=== PATIENT | female | born 1995 | race Caucasian/White ===

== ENCOUNTER 2019-02-07 19:00 | Inpatient (IN) | payer OTHER ==
[2019-02-07 22:38] LABS: BASO % 0.7 % (0-2.0); EOS % 0.8 % (0-4.5); HEMATOCRIT 37.2 % (32.4-45.2); HEMOGLOBIN 12.5 GM/dL (10.7-15.3); LYMPH % 26.9 % (8-40); MCH 28.9 pg (25.7-33.7); MCHC 33.6 g/dl (32.0-36.0); MEAN CELL VOLUME 86.1 fl (80-96); MEAN PLT VOLUME 11.9 fl (7.5-11.1); MONO % 5.8 % (3.8-10.2); NEUT % 65.8 % (42.8-82.8); PLATELET COUNT 205 K/MM3 (134-434); RBC 4.32 M/mm3 (3.60-5.2); RDW 13.1 % (11.6-15.6)
[2019-02-07 22:51] LABS: INR 0.94 (0.83-1.09); PROTHROMBIN TIME (PATIENT) 11.1 SEC (9.7-13.0)
[2019-02-07 22:53] LABS: ACTIVATED PTT 28.4 SECONDS (25.2-36.5)
[2019-02-07 23:09] LABS: CALCIUM 9.1 mg/dL (8.5-10.1); CREATININE 0.6 mg/dL (0.55-1.3); POTASSIUM 3.9 mmol/L (3.5-5.1)
[2019-02-07 23:44] VITALS: BMI 28.9
[2019-02-08] MEDS ORDERED: AMPICILLIN - 2 GM in SODIUM CHLORIDE 100 ML IVPB STA (02:58)
[2019-02-08] MEDS ORDERED: DEXTROSE 5%-LACTATED RINGERS 1,000 ML IV SCH (03:00)
[2019-02-08] MEDS ORDERED: AMPICILLIN SODIUM 2 GM VIAL ONE (03:06)
[2019-02-08] MEDS ORDERED: AMPICILLIN SODIUM 1 GM VIAL ONE ×3 (06:39→23:32)
[2019-02-08] MEDS: AMPICILLIN - 1 GM in SODIUM CHLORIDE 100 ML IVPB SCH ×5 (06:49→23:00)
[2019-02-08 08:45] LABS: POC NITRAZINE POS
[2019-02-08] MEDS: DEXTROSE 5%-LACTATED RINGERS 1,000 ML IV SCH ×2 (09:00→22:00)
[2019-02-08] MEDS ORDERED: DINOPROSTONE 10 MG VAGINAL SUPPOSITORY VG ONE (09:00)
--- NOTE | 2019-02-08 09:29 | HP ---
Past Medical History - Admission Chief Complaint: Leakage of fluid History of Present Illness: 23 yo , @ 39 weeks gestation, EDC 02/11/19, admitted due to spontaneous rupture of membrane. Upon admission there was evidence of gross pooling. History Source: Patient Limitations to Obtaining History: No Limitations - Past Medical History ...: 1 ...Para: 0 ...Term: 0 ...: 0 ...Spon : 0 ...Induced : 0 ...Multiple Gestation: 0 ...LMP: 05/07/18 ... Weeks Gestation by Dates: 39.4 ...EDC by Dates: 02/11/19 - Past Surgical History Past Surgical History: Yes: None Hx Myomectomy: No Hx Transabdominal Cerclage: No - Smoking History Smoking history: Never smoked Aproximately how many cigarettes per day: 0 - Alcohol/Substance Use Hx Alcohol Use: No - Social History History of Recent Travel: No Home Medications - Allergies Allergies/Adverse Reactions: Allergies Allergy/AdvReac Type Severity Reaction Status Date / Time No Known Allergies Allergy Verified 02/08/19 04:26 - Home Medications Home Medications: Ambulatory Orders Vitamins ([facility]) - 1 tab PO DAILY 02/08/19 Family Medical History Family History: Unremarkable Review of Systems - Review of Systems Constitutional: reports: No Symptoms Eyes: reports: No Symptoms HENT: reports: No Symptoms Neck: reports: No Symptoms Cardiovascular: reports: No Symptoms Respiratory: reports: No Symptoms Gastrointestinal: reports: No Symptoms Genitourinary: reports: Other (Leakage of fluid) Breasts: reports: No Symptoms Reported Musculoskeletal: reports: No Symptoms Integumentary: reports: No Symptoms Neurological: reports: No Symptoms Endocrine: reports: No Symptoms Hematology/Lymphatic: reports: No Symptoms Psychiatric: reports: No Symptoms Pain Intensity: 0 Physical Exam - Maternity Vital Signs: Vital Signs Temperature 98.5 F 02/08/19 08:00 Pulse Rate 62 02/08/19 08:00 Respiratory Rate 18 02/08/19 08:00 Blood Pressure 110/66 02/08/19 08:00 O2 Sat by Pulse Oximetry (%) Constitutional: No: No Distress Eyes: Yes: Conjunctiva Clear HENT: Yes: Atraumatic Neck: Yes: Supple Cardiovascular: Yes: Regular Rate and Rhythm Lungs: Clear to auscultation - Abdominal Exam/OB Number of Fetuses: Single Presentation: Vertex Contractions: Yes Regularity: Irregular Intensity: Unaware - Vaginal Exam/OB Amniotic Membrane Status: Ruptured Nitrazine Test: Positive Amniotic Fluid: Yes: Clear Presentation: Vertex/Position Station: -3 - Physical Exam Integumentary: Yes: WNL ...Motor Strength: WNL Psychiatric: Yes: Alert, Oriented - Labs Lab Results: CBC, BMP 02/07/19 22:15 02/07/19 22:15 Problem List - Problems (1) 39 weeks gestation of Problems reviewed: Yes Code(s): Z3A.39 - 39 WEEKS GESTATION OF (2) Spontaneous rupture of amniotic membranes Problems reviewed: Yes Code(s): OKO6915 - Assessment/Plan 39 weeks gestation Spontaneous rupture of membrane Admit for cervidil induction GBS prophylaxis
[2019-02-08] MEDS ORDERED: OXYTOCIN 30 UNITS in 0.9% NS 30 UNIT/500 ML INFUS.BAG IVPB ONE (21:53)
[2019-02-08] MEDS ORDERED: OXYTOCIN 30 UNITS in 0.9% NS 30 UNIT/500 ML INFUS.BAG IVPB SCH ×2 (22:00→22:45)
[2019-02-08] MEDS ORDERED: diphenhydrAMINE HCL 25 MG CAPSULE (FP) PO ONE (22:00)
--- NOTE | 2019-02-08 22:44 | LDN ---
Oxytocin Pre-Use Checklist Date and Time completed: 02/08/19 2306 Physician order on chart: Yes Current history and physical on chart: Yes Indication for induction is documented: Yes record on chart: Yes Pelvis is documented by physician to be clinically adequate: Yes Estimated weight within past week (clinical or sono): Less than 4500 grams in a non-diabetic woman Gestational age is documented: Yes Consent signed: Yes Physician with privileges: is aware of the induction, is documented in the medical record Status of the cervix is assessed and documented: Yes Presentation is assessed and documented: Yes Assessment completed and includes: A minimum of 30 minutes of monitoring is required prior to start, At least 2 accelerations (15bpm x 15sec) in 30 minutes are present, Adequate variability
[2019-02-08] MEDS ORDERED: FENTANYL/BUPIVACAINE/NS/PF - PCEA - 50 ML DISP.SYRIN EP ONE (23:29)
[2019-02-08] MEDS: ELECTROLYTE-148 SOLN 1,000 ML IV SCH (23:30)
[2019-02-08] MEDS ORDERED: LIDO 2%/EPI 1:200000 PRESRVFRE (20 ML SDVIAL) ONE (23:32)
[2019-02-08] MEDS: FENTANYL/BUPIVACAINE/NS/PF - PCEA - 50 ML DISP.SYRIN EP SCH (23:50)
[2019-02-09] MEDS ORDERED: NALOXONE HCL 0.4 MG/ML VIAL IVPUSH PRN (00:07)
[2019-02-09] MEDS: ELECTROLYTE-148 SOLN 1,000 ML IV SCH (02:45)
[2019-02-09] MEDS: AMPICILLIN - 1 GM in SODIUM CHLORIDE 100 ML IVPB SCH (03:00)
[2019-02-09] MEDS ORDERED: AMPICILLIN SODIUM 1 GM VIAL ONE ×2 (03:09→07:12)
[2019-02-09] MEDS ORDERED: FENTANYL/BUPIVACAINE/NS/PF - PCEA - 50 ML DISP.SYRIN EP ONE ×2 (04:08→07:11)
[2019-02-09] MEDS ORDERED: LIDOCAINE HCL 1% PRESERVATIVE FREE - 30ML VIAL ONE (05:51)
[2019-02-09] MEDS ORDERED: OXYTOCIN 20 UNITS in 0.9% NS 20 UNIT/1,000 ML INFUS.BAG IV ONE (05:52)
[2019-02-09] MEDS ORDERED: AMPICILLIN - 1 GM in SODIUM CHLORIDE 100 ML IVPB SCH ×3 (07:00→11:27)
--- NOTE | 2019-02-09 07:09 | PN ---
Ante-Partal Exam - Subjective Subjective: Pt doing well after epidural Vital Signs: Vital Signs Temperature 98.8 F 02/09/19 07:00 Pulse Rate 56 L 02/09/19 06:45 Respiratory Rate 20 02/09/19 06:45 Blood Pressure 98/62 02/09/19 06:45 O2 Sat by Pulse Oximetry (%) 100 02/09/19 06:45 Bleeding: No Headache: No Visual changes: No Right upper quadrant pain: No - Contractions Contractions: Yes - Exam during Labor Category: I Monitor Decelerations: None Exam: Vaginal Dilatation (cm): 10 Amniotic Membrane Status: Ruptured Amniotic Fluid: Clear Presentation: Vertex Station: +1 - Intrapartum Hemorrhage Risk Risk Score: 0 Risk Level: Low Risk - Assessment/Plan Assessment/Plan: Active Labor 2nd stage IUP at 39 week Plan anticipate vaginal delivery
[2019-02-09] MEDS: FENTANYL/BUPIVACAINE/NS/PF - PCEA - 50 ML DISP.SYRIN EP SCH (07:15)
[2019-02-09] MEDS ORDERED: METHYLERGONOVINE MALEATE 0.2 MG/1 ML AMP IM PRN (09:21)
[2019-02-09] MEDS ORDERED: WITCH HAZEL 50% (TUCKS) 40 PAD/JAR PAD TP PRN (09:21)
[2019-02-09] MEDS ORDERED: BENZOCAINE 28 GM HEMORRHOIDAL OINTMENT PR PRN (09:21)
[2019-02-09] MEDS ORDERED: BENZOCAINE 20% 57 GM BOTTLE TP PRN (09:21)
[2019-02-09] MEDS ORDERED: BISACODYL 10 MG SUPP.RECT RC PRN (09:21)
--- NOTE | 2019-02-09 09:21 | PN ---
Ante-Partal Exam - Subjective Subjective: Pt doing well pushing Vital Signs: Vital Signs Temperature 98.8 F 02/09/19 08:00 Pulse Rate 60 02/09/19 07:45 Respiratory Rate 18 02/09/19 07:45 Blood Pressure 98/57 L 02/09/19 07:45 O2 Sat by Pulse Oximetry (%) 100 02/09/19 07:45 Bleeding: No Headache: No Visual changes: No Right upper quadrant pain: No - Contractions Contractions: Yes Regularity: Regular Intensity: Moderate Monitor Mode: External - Exam during Labor Heart Rate: 140 Variability: Moderate Category: I Monitor Decelerations: Variable Exam: Vaginal Dilatation (cm): FD Effacement (%): 100 Amniotic Membrane Status: Intact Presentation: Vertex Station: +1 - Assessment/Plan Assessment/Plan: Fully dilated anticipate vaginal deliver
--- NOTE | 2019-02-09 09:26 | PN ---
Delivery - Delivery Vaginal Delivery: No Problems (nuchal cord x 1) Type of Anesthesia: Local, Epidural Episiotomy/Laceration: Right Mediolateral EBL (cc): 350 Delivery, Single - [place] Feeding Plan Initial Plan: Exclusive throughout hospitalization
[2019-02-09] MEDS ORDERED: OXYTOCIN 20 UNITS in 0.9% NS 20 UNIT/1,000 ML INFUS.BAG IV SCH (09:30)
--- NOTE | 2019-02-10 06:16 | PN ---
Post Note - Post Date of Delivery: 02/09/19 Post Day: 1 Vital Signs: Vital Signs - 24 hr 02/09/19 02/09/19 02/09/19 06:30 06:45 07:00 Temperature 98.8 F Pulse Rate 61 56 L 59 L Respiratory 19 20 18 Rate Blood Pressure 107/60 98/62 95/62 O2 Sat by Pulse 100 100 100 Oximetry (%) 02/09/19 02/09/19 02/09/19 07:15 07:30 07:45 Temperature Pulse Rate 59 L 62 60 Respiratory 18 20 18 Rate Blood Pressure 103/56 L 100/62 98/57 L O2 Sat by Pulse 100 100 100 Oximetry (%) 02/09/19 02/09/19 02/09/19 08:00 08:15 09:30 Temperature 98.8 F Pulse Rate 78 97 H 95 H Respiratory 18 20 18 Rate Blood Pressure 99/62 115/79 113/58 L O2 Sat by Pulse 99 100 Oximetry (%) 02/09/19 02/09/19 02/09/19 09:45 10:00 10:15 Temperature 98.5 F Pulse Rate 88 76 74 Respiratory 18 18 18 Rate Blood Pressure 117/64 107/62 112/66 O2 Sat by Pulse Oximetry (%) 02/09/19 02/09/19 02/09/19 10:30 10:45 11:25 Temperature 99.2 F Pulse Rate 70 61 64 Respiratory 18 18 18 Rate Blood Pressure 110/62 98/57 L 118/76 O2 Sat by Pulse Oximetry (%) 02/09/19 02/09/19 02/09/19 14:00 17:06 20:57 Temperature 98.4 F 98.6 F Pulse Rate 68 71 Respiratory 18 18 18 Rate Blood Pressure 120/62 118/78 O2 Sat by Pulse 100 Oximetry (%) 02/09/19 02/10/19 02/10/19 21:18 01:24 05:36 Temperature 98.7 F 98 F 98.6 F Pulse Rate 63 64 56 L Respiratory 18 18 16 Rate Blood Pressure 110/73 115/78 118/56 L O2 Sat by Pulse Oximetry (%) Labs: Laboratory Results - last 24 hr 02/09/19 02/09/19 09:04 09:04 Cord Blood pH 7.22 7.28 Cord Blood PCO2 52.1 41.0 Cord Blood PO2 < 49 H < 49 H Cord Blood HCO3 20.4 18.8 L Cord Base Excess -7.5 L -7.1 L - Subjective Subjective: No Complaints - Objective Afebrile: Yes Breast: Not engorged Abdomen: Soft, Non-tender Uterus: Fundus firm Vagina: Scant lochia Extremities: Non-tender - Assessment/Plan (1) Normal vaginal delivery Assessment: S/P Normal Plan: Routine Care
[2019-02-10 08:39] LABS: BASO % 0.5 % (0-2.0); EOS % 0.5 % (0-4.5); HEMATOCRIT 31.7 % (32.4-45.2); HEMOGLOBIN 10.6 GM/dL (10.7-15.3); LYMPH % 18.5 % (8-40); MCH 28.8 pg (25.7-33.7); MCHC 33.3 g/dl (32.0-36.0); MEAN CELL VOLUME 86.4 fl (80-96); MEAN PLT VOLUME 11.7 fl (7.5-11.1); MONO % 7.1 % (3.8-10.2); NEUT % 73.4 % (42.8-82.8); PLATELET COUNT 170 K/MM3 (134-434); RBC 3.67 M/mm3 (3.60-5.2); RDW 13.4 % (11.6-15.6); WHITE BLOOD COUNT 11.7 K/mm3 (4.0-10.0)
[2019-02-10] MEDS: ACETAMINOPHEN 325 MG TABLET (FP) PO PRN ×2 (10:33→20:46)
[2019-02-10] MEDS: IBUPROFEN 600 MG TABLET (FP) PO PRN ×2 (10:34→20:46)
[2019-02-11 09:04] VITALS: BP 118/67; PULSE 54; TEMP 97.9
== END 2019-02-11 13:00 | disposition home or self-care (01) | DRG 560 ==
LOC: JDEL 19:00 → JLDR 21:10 → J3W 02-09 11:23
PROVIDERS: ADMIT Obstetrics & Gynecology; ATTEND Obstetrics & Gynecology
PROC: 10E0XZZ Delivery of Products of Conception, External Approach (ICD-10-PCS; principal; 2019-02-09)
PROC: 0W8NXZZ Division of Female Perineum, External Approach (ICD-10-PCS; 2019-02-09)
DX: O69.81X0 Labor and delivery complicated by cord around neck, without compression, not applicable or unspecified (principal); Z3A.39 39 weeks gestation of pregnancy; Z37.0 Single live birth
CPT/HCPCS: 36415; 36600; 59409; 80048; 82803; 83986-QW; 85025; 85610; 85730; 86593; 86850; 86900; 86901; 87389